=== PATIENT | male | born 1990 | race Caucasian/White ===

== ENCOUNTER 2023-09-24 13:13 | Outpatient (CLI) | payer BC, SELFPAY | END 2023-09-24 13:14 | disposition home or self-care (01) | PROVIDERS: PCP Family Medicine; Visit Provider Family Medicine | DX: Z13.220 Encounter for screening for lipoid disorders (principal); Z13.228 Encounter for screening for other metabolic disorders | CPT/HCPCS: 80048; 80061 ==